=== PATIENT | male | born 1965 | race Caucasian/White ===

== ENCOUNTER 2016-08-12 08:54 | Emergency (ER) | payer OTHER ==
[2016-08-12 09:15] VITALS: BP 144/89; PULSE 73; RESP 18; TEMP 98; O2SAT 94
--- NOTE | 2016-08-12 09:41 | DX ---
Chest, PA and lateral, 3 views HISTORY: Cough, dyspnea COMPARISON: None FINDINGS: Heart size is at the upper limits of normal. Pulmonary vascularity is normal. There is steff hilar bronchial wall thickening. Lung findings are mildly prominent. There is no focal infiltrate or consolidation. There is no pleural fluid. There is no mass or adenopathy. There is a minor compressio n of the T8 vertebral body, likely related to remote trauma, since there is adjacent mild narrowing o f the T8-T9 disc space and anterior osteophytes both above and below the T8 level. Impression: Possible airways disease.
--- NOTE | 2016-08-12 09:48 | UCPHY ---
H & P Time Seen by Provider: 08/12/16 09:02 Patient Type: New HPI/ROS: 50-year-old male presents complaining of cough and nasal congestion for approximately 10 days, has been using his inhaler for his cough and has also been using a Neti pot for his congestion. Review of systems As per HPI-positive cold symptoms, nasal congestion General no fever no chills no weakness HEENT no eye pain no eye discharge. No eye redness, no sore throat Respiratory positive cough, no shortness of breath Cardiac no chest pain, no peripheral edema GI no abdominal pain, no diarrhea, no constipation, no nausea, no vomiting no flank pain, no hematuria, no dysuria Musculoskeletal no myalgias, no joint pain Heme no easy bruising, no easy bleeding Endo no polyuria, no polydipsia Skin no rashes, no pruritus Neuro no syncope, no dizziness, no headaches Psych is no suicidal ideation, no homicidal ideation Past Medical/Surgical History: Pneumonia Asthma Social History: Alcohol socially, no drugs Smoking Status: Never smoked Physical Exam: 50-year-old male Alert and oriented nontoxic appearance, no acute distress afebrile Atraumatic normocephalic Extraocular muscles intact, anicteric Nares mild yellowish discharge Oropharynx mild erythema no tonsillar swelling no exudate no uvular deviation, tolerating own secretions Neck supple no lymphadenopathy Lungs clear to auscultation bilaterally Heart regular rate and rhythm Abdomen normoactive bowel sounds soft nontender Extremities no cyanosis clubbing or edema Skin no rash Constitutional: Initial Vital Signs Temperature (C) 36.6 C 08/12/16 09:09 Heart Rate 73 08/12/16 09:09 Respiratory Rate 18 08/12/16 09:09 Blood Pressure 144/89 H 08/12/16 09:09 O2 Sat (%) 94 08/12/16 09:09 O2 Delivery Mode Room Air Allergies/Adverse Reactions: Penicillins Allergy (Verified 08/12/16 09:08) Home Medications: Medication Instructions Recorded AZITHROMYCIN [Z-PACK] 250 mg PO DAILY #6 tab 08/12/16 Proair Hfa Icu (*) 08/12/16 methylPREDNISolone [Medrol Dose 1 each PO AD #1 ea 08/12/16 Leonel] Medical Decision Making - Diagnostics Imaging: Chest x-ray negative ED Course/Re-evaluation: Patient seen and evaluated for cough, nasal congestion, fevers and chills. The cough and nasal congestion have continued for approximately 10 days of fevers and chills for likely only the 1st 1 or 2 days. Differential diagnosis Bronchitis, URI, pneumonia, asthmatic bronchitis, influenza Physical exam significant for nasal congestion and nasal turbinates swelling lungs clear to auscultation and physical exam otherwise benign Chest x-ray negative, consistent with airway disease Impression Asthmatic bronchitis Sinus congestion Plan Zithromax Medrol Dosepak Patient refusing steroid inhaler, patient refusing nasal steroid inhaler also. Departure - Departure Disposition: Home, Routine, Self-Care Clinical Impression: Asthmatic bronchitis, Nasal sinus congestion Condition: Good Instructions: Asthma (ED), Acute Bronchitis (ED), Sinusitis (ED) [place]errals: [place],. [Primary Care Provider] - As per Instructions Prescriptions: methylPREDNISolone [Medrol Dose Leonel] 1 each PO AD #1 ea AZITHROMYCIN [Z-PACK] 250 mg PO DAILY #6 tab - PQRS PQRS Measurement: na
== END 2016-08-12 10:04 | disposition home or self-care (01) ==
LOC: CED 08:54
DX: J20.9 Acute bronchitis, unspecified (principal); J32.9 Chronic sinusitis, unspecified; J45.909 Unspecified asthma, uncomplicated
CPT/HCPCS: 71020-PO; 99203-PO; G0463-PO